=== PATIENT | male | born 1945 | race Caucasian/White ===

== ENCOUNTER → 2023-11-28 08:51 | Outpatient (REF) | payer MEDICARE, OTHER, SELFPAY ==
[2023-12-01 07:48] LABS: PSA Total 3.6 ng/mL (0.0-4.0)
== END ==
LOC: HWLAB 08:51
PROVIDERS: ATTENDING PHYSICIAN Specialist; FAMILY PHYSICIAN Family Medicine
DX: R97.20 Elevated prostate specific antigen [PSA] (principal)
CPT/HCPCS: 36415; 84153; 84154

== ENCOUNTER → 2024-12-03 11:08 | Outpatient (REF) | payer MEDICARE, OTHER, SELFPAY ==
[2024-12-05 17:12] LABS: PSA Total 5.1 ng/mL (0.0-4.0)
== END ==
LOC: HWLAB 11:08
PROVIDERS: ATTENDING PHYSICIAN Specialist; FAMILY PHYSICIAN Family Medicine
DX: R97.20 Elevated prostate specific antigen [PSA] (principal)
CPT/HCPCS: 36415; 84153; 84154